=== PATIENT | male | born 1940 | race Caucasian/White ===

== ENCOUNTER 2016-05-29 16:44 | Inpatient (IN) ==
[2016-05-29] MEDS ORDERED: Ipratropium/Albuterol Neb 3 ML IH ONE (16:53)
[2016-05-29] MEDS ORDERED: methylPREDNISolone 125 MG/2 ML VIAL IVP ONE (16:53)
--- NOTE | 2016-05-29 16:58 | Emergency Department Note ---
Disposition Clinical Impression: Acute exacerbation of chronic obstructive airways disease, Lung mass Atrial flutter Qualifiers: Atrial flutter type: unspecified Qualified Code(s): I48.92 - Unspecified atrial flutter Lung cancer Qualifiers: Laterality: unspecified laterality Lung location: unspecified part of lung Qualified Code(s): C34.90 - Malignant neoplasm of unspecified part of unspecified bronchus or lung Disposition: Admitted As Inpatient Condition: Fair Referrals: NO,PCP [Non-Partnered Physician] - Forms: ED Satisfaction Letter Time of Disposition: 18:38 SOB HPI - General Chief Complaint: ED Shortness of Breath/Dyspnea Stated Complaint: SOB Time Seen by Provider: 05/29/16 16:53 Source: patient Mode of arrival: ambulatory Limitations: no limitations Nursing Notes Reviewed: Yes Vital Signs Reviewed: Yes - History of Present Illness 76-year-old comes in complaining of some shortness of breath. Patient states has a history of COPD and is also noted his heart rate to be elevated. Has no history of atrial fibrillation. Denies chest pain. 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 Echo cardiogram done in 2015 shows an EF of 45%. Pt Subjective Complaint: shortness of breath Onset (ago): hour(s) Severity: moderate Consistency/Duration: constant Improves with: nothing Worsens with: exertion Known history of: COPD Associated symptoms: Reports: wheezing Treatment prior to arrival: none Cough present: Yes Cough Description: Involuntary Cough Frequency: Intermittent - Related Data Home Medications Medication Instructions Recorded Confirmed Aspirin Enteric Coated [Aspirin EC] 81 mg PO DAILY 07/18/15 05/29/16 Furosemide [Lasix] 40 mg PO DAILY PRN 07/18/15 05/29/16 Hydrocodone/Ibuprofen 1 each PO Q8HR PRN 07/18/15 05/29/16 [Hydrocodone-Ibuprofen 7.5-200] Multivit-Min/FA/Lycopen/Lutein 1 each PO DAILY 07/18/15 05/29/16 [Centrum Silver Tablet] Albuterol Sulfate [Proair 2 puff IH Q6H PRN 05/22/16 05/29/16 Respiclick] Budesonide/Formoterol 160/4.5 2 puff IH BIDR 05/22/16 05/29/16 [Symbicort 160/4.5] Cyanocobalamin (B-12) [Vitamin B12] 1,000 mcg PO DAILY 05/22/16 05/29/16 Docusate [Colace] 100 mg PO BID 05/22/16 05/29/16 LORazepam [Ativan] 0.5 mg PO QID PRN 05/22/16 05/29/16 Loperamide [Imodium] 2 mg PO AD PRN 05/22/16 05/29/16 Magic Mouthwash [Magic Mouthwash 10 ml PO TID PRN 05/22/16 05/29/16 BLM] Ondansetron [Zofran] 8 mg PO Q8HR PRN 05/22/16 05/29/16 Prochlorperazine Maleate 10 mg PO Q6HR PRN 05/22/16 05/29/16 [Compazine] Sertraline [Zoloft] 2 mg PO HS 05/22/16 05/29/16 Zolpidem [Ambien] 5 mg PO HS PRN 05/22/16 05/29/16 Allergies Allergy/AdvReac Type Severity Reaction Status Date / Time No Known Allergies Allergy Verified 05/29/16 15:48 Constitutional: Denies: fever, chills, weakness, weight change Eyes: Denies: eye pain, eye discharge, vision change ENT ED: Denies: ear pain, throat pain, dental pain, hearing loss, epistaxis, congestion, dysphagia Cardiovascular: Denies: chest pain, palpitations, dyspnea on exertion, edema, syncope Respiratory: Denies: cough, dyspnea, wheezes, hemoptysis, stridor Gastrointestinal: Denies: abdominal pain, nausea, vomiting, diarrhea, constipation, hematemesis, melena, hematochezia Genitourinary: Denies: urgency, dysuria, frequency, hematuria Musculoskeletal: Denies: back pain, neck pain, arthralgia, myalgia Integumentary: Denies: rash, abrasion, lesions Neurological: Denies: headache, weakness, numbness, paresthesias, confusion, abnormal gait, vertigo Psychiatric: Denies: anxiety, depression, suicidal thoughts, homicidal thoughts , auditory hallucinations, visual hallucinations Endocrine: Denies: fatigue Hematological/Lymphatic: Denies: easy bleeding, easy bruising Allergic/Immunologic: Denies: facial swelling, urticaria Past Medical History - Past Medical History Medical history: Reports: cancer, COPD, DVT, HIV/AIDS, other Surgical history: Reports: other Psychiatric history: Reports: no psych history - Social History Smoking Status: Former smoker Alcohol use: Reports: none Drug use: Reports: none Physical Exam - General Limitations: no limitations General appearance: alert, in no apparent distress - Head Head exam: atraumatic, normocephalic, normal inspection - Eye Eye exam: Present: normal appearance, PERRL, EOMI - ENT ENT exam: normal exam, normal oropharynx, mucous membranes moist - Neck Neck exam: Present: normal inspection, full ROM, trachea midline - Chest Chest inspection: Present: normal inspection, symmetric chest wall rise - Respiratory Respiratory exam: Present: normal lung sounds bilaterally - Cardiovascular Cardiovascular exam: Present: tachycardia, irregular rhythm, normal heart sounds - Abdominal Exam Abdominal exam: Present: soft, Non-Tender. Absent: tenderness, distention, guarding, rebound, rigidity - Extremities Exam Extremities exam: Present: normal inspection, full ROM. Absent: tenderness, pedal edema - Expanded Lower Extremity Exam Neurovascular/Tendon exam: Absent: motor deficit, sensory deficit, tendon deficit Gait: observed and normal - Back Exam Back exam: Present: normal inspection, full ROM. Absent: tenderness - Neurological Exam Neurological exam: Present: alert, oriented X3 - Psychiatric Psychiatric exam: Present: normal affect, normal mood - Skin Skin exam: Present: warm, dry, intact, normal color Course Course Narrative: 76-year-old stage IV lung cancer comes in with shortness of breath. EKG shows an atrial flutter with rapid ventricular response patient was started on Cardizem with marked improvement of symptomatology however his heart rate remained at 1:30. The patient will be admitted for further evaluation and treatment. - Reevaluation(s) Reevaluation #1: States feeling much better however his heart rate still at about 130 while increase his Cardizem to 7.5/h. Time: 18:34 - Consultations Consultation #1: Discussed with Dr. Saba, it. Time: 20:33 Consultation #2: I discussed the case with Dr. Lauro Dowell he would like to add amiodarone standard drip. Time: 20:37 Consultation #3: Discussed with pharmacy. Time: 20:41 Vital Signs Temperature 98.2 F 05/29/16 17:02 Pulse Rate 131 05/29/16 17:02 Respiratory Rate 24 05/29/16 17:02 Blood Pressure 108/78 05/29/16 17:02 O2 Sat by Pulse Oximetry 94 05/29/16 17:02 Temperature 98.2 F 05/29/16 17:02 Pulse Rate 128 05/29/16 20:22 Respiratory Rate 14 05/29/16 20:22 Blood Pressure 117/70 05/29/16 20:22 O2 Sat by Pulse Oximetry 96 05/29/16 20:22 Oxygen Delivery Oxygen Delivery Nasal Cannula Shortness of Breath/Dyspnea - Lab Data Result diagrams: 05/29/16 17:00 05/29/16 17:00 Lab Results 05/29/16 05/29/16 05/29/16 Range/Units 17:00 17:00 17:00 WBC 12.2 H (4.3-11.1) K/mcL RBC 4.16 L (4.19-5.50) M/mcL Hgb 10.8 L (12.9-16.9) g/dL Hct 35.9 L (37.5-50.1) % MCV 86.3 (83.0-100.0) fL MCH 26.0 L (28.0-33.3) pg MCHC 30.1 L (31.6-35.5) g/dL RDW 18.4 H (11.5-14.5) % Plt Count 266 (140-400) K/mcL MPV 9.4 (9.4-12.4) fL Immature Gran % 0.5 (0-4) % Seg Neutrophils % 63.1 % Lymphocytes % 28.0 % Monocytes % 6.7 % Eosinophils % 1.4 % Basophils % 0.3 % Neutrophils # 7.7 (1.6-8.9) K/mcL Lymphocytes # 3.4 (0.6-4.6) K/mcL Monocytes # 0.8 (0.0-1.3) K/mcL Eosinophils # 0.2 (0.0-0.6) K/mcL Basophils # 0.0 (0.0-0.2) K/mcL PT 11.8 (9.4-12.1) Seconds INR 1.1 APTT 30.7 (26.0-36.0) Seconds Sodium 140 (136-145) mEq/L Potassium 4.1 (3.5-4.5) mEq/L Chloride 105 (98-109) mEq/L Carbon Dioxide 30 H (19-29) mEq/L BUN 18 (8-26) mg/dL Creatinine 0.72 (0.72-1.25) mg/dL Est GFR ( Amer) > 60 (> 60) Est GFR (Non-Af Amer) > 60 (> 60) BUN/Creatinine Ratio 25 (6-26) Glucose 144 H (70-99) mg/dL Calculated Osmolality 294 (280-300) Lactic Acid (0.5-2.2) mmol/L Calcium 9.1 (8.6-10.8) mg/dL Troponin I (0-0.03) ng/mL B-Natriuretic Peptide (0-100) pg/mL 05/29/16 05/29/16 05/29/16 Range/Units 17:00 17:00 17:36 WBC (4.3-11.1) K/mcL RBC (4.19-5.50) M/mcL Hgb (12.9-16.9) g/dL Hct (37.5-50.1) % MCV (83.0-100.0) fL MCH (28.0-33.3) pg MCHC (31.6-35.5) g/dL RDW (11.5-14.5) % Plt Count (140-400) K/mcL MPV (9.4-12.4) fL Immature Gran % (0-4) % Seg Neutrophils % % Lymphocytes % % Monocytes % % Eosinophils % % Basophils % % Neutrophils # (1.6-8.9) K/mcL Lymphocytes # (0.6-4.6) K/mcL Monocytes # (0.0-1.3) K/mcL Eosinophils # (0.0-0.6) K/mcL Basophils # (0.0-0.2) K/mcL PT (9.4-12.1) Seconds INR APTT (26.0-36.0) Seconds Sodium (136-145) mEq/L Potassium (3.5-4.5) mEq/L Chloride (98-109) mEq/L Carbon Dioxide (19-29) mEq/L BUN (8-26) mg/dL Creatinine (0.72-1.25) mg/dL Est GFR ( Amer) (> 60) Est GFR (Non-Af Amer) (> 60) BUN/Creatinine Ratio (6-26) Glucose (70-99) mg/dL Calculated Osmolality (280-300) Lactic Acid 0.8 (0.5-2.2) mmol/L Calcium (8.6-10.8) mg/dL Troponin I 0.03 (0-0.03) ng/mL B-Natriuretic Peptide 641 H (0-100) pg/mL - Radiology Data Radiology results reviewed: Yes I reviewed the patient's radiology results. Chest X-Ray 05/29/16 16:55 IMPRESSION: Bilateral lung masses better characterized on CT. Trace to small bilateral effusions. D/ / 05/29/2016 18:36:59 Lorena Edmonds MD / earnold Interpreting Provider: Lorena Edmonds MD - EKG Data EKG attestation: Yes I reviewed and interpreted this EKG. Rate: Reports: tachycardia Rhythm: Reports: A. flutter Interpretation: Reports: other (Acute atrial flutter) Critical Care Time Critical Care Time: Yes Total Critical Care Time: 75 Attestation: The high probability of a clinically significant, sudden or life threatening deterioration of the [cardiovascular] system(s) required my full and direct attention, intervention and personal management. The aggregate critical care time was [75] minutes. This time is in addition to time spent performing reported procedures but includes the following: [x] Data Review and interpretation [x] Patient assessment and monitoring of vital signs [x] Documentation [x] Medication orders and management
[2016-05-29] MEDS ORDERED: 0.9 % Sodium Chloride 500 ML IVC ONE (17:06)
[2016-05-29 17:11] LABS: Basophils % 0.3 %; Eosinophils # 0.2 K/mcL (0.0-0.6); Eosinophils % 1.4 %; Hematocrit 35.9 % (37.5-50.1); Hemoglobin 10.8 g/dL (12.9-16.9); Immature Granulocytes % 0.5 % (0-4); Lymphocytes # 3.4 K/mcL (0.6-4.6); Mean Corpuscular HGB Conc 30.1 g/dL (31.6-35.5); Mean Corpuscular Volume 86.3 fL (83.0-100.0); Mean Platelet Volume 9.4 fL (9.4-12.4); Monocytes # 0.8 K/mcL (0.0-1.3); Monocytes % 6.7 %; Neutrophils # 7.7 K/mcL (1.6-8.9); Platelet Count 266 K/mcL (140-400); Red Blood Count 4.16 M/mcL (4.19-5.50); Red Cell Distribution Width 18.4 % (11.5-14.5); Segmented Neutrophils % 63.1 %
[2016-05-29 17:13] LABS: INR 1.1; Prothrombin Time 11.8 Seconds (9.4-12.1)
[2016-05-29 17:16] LABS: Activated Partial Thrombo Time 30.7 Seconds (26.0-36.0)
[2016-05-29 17:20] LABS: BUN/Creatinine Ratio 25 (6-26); Blood Urea Nitrogen 18 mg/dL (8-26); Calcium 9.1 mg/dL (8.6-10.8); Carbon Dioxide 30 mEq/L (19-29); Chloride 105 mEq/L (98-109); Glucose 144 mg/dL (70-99); Osmolality,Calculated 294 (280-300); Potassium 4.1 mEq/L (3.5-4.5); Sodium 140 mEq/L (136-145); eGFR For African Americans > 60 (> 60); eGFR For Non-African Americans > 60 (> 60)
[2016-05-29] MEDS ORDERED: *HR* HYDROcodone/Acet 5/325 mg TABLET PO ONE (20:24)
[2016-05-29] MEDS ORDERED: Amiodarone Premix 360 MG/200 ML BAG IVC ONE (20:37)
[2016-05-29] MEDS ORDERED: Albuterol 2.5 MG/3 ML NEBULIZER IH PRN (22:46)
[2016-05-29] MEDS ORDERED: Ipratropium/Albuterol Neb 3 ML IH SCH (23:00)
--- NOTE | 2016-05-29 23:33 | Internal Med History&Physical ---
<Mary Delgado - Last Filed: 05/30/16 00:17> Date of Encounter: 05/30/16 Time of Encounter: 23:00 Assessment and Plan (1) Atrial flutter Current visit: Yes Status: Acute Patient has been expressing increasing shortness of breath with weight gain for approximately one week. She presented today to the ER was noted that his EKG revealed atrial flutter with rapid ventricular response rate 130s. Patient seen on cardiac exam case discussed with cardiology who suggested adding amiodarone will continue 2 cardiology consult 3 continue his cardiac monitoring 4 heparin drip 5. Obtain cardiac echo 6 trend troponin Qualifiers: Atrial flutter type: unspecified Qualified Code(s): I48.92 - Unspecified atrial flutter (2) Dyspnea Current visit: No Status: Acute 1. She has history of chronic shortness of breath over the past week has been dispensing increasing shortness of breath on exertion. This could be multifactorial patient is a history of COPD as well as lung cancer. He has a history of liver metastases and has been experiencing ascites which could also compromises respiratory status. He presents today in atrial flutter rate of 130 and sure how long he has been in this rhythm, which also could be contributing to dyspnea. He will continue with oxygen titrating to maintain SPO2 greater than 92% 2 we will give Xopenex as needed for wheezing 3 continue with amiodarone as well as Cardizem drip atrial flutter 4. consider Paracentesis to improve resp status Qualifiers: Dyspnea type: dyspnea on exertion Qualified Code(s): R06.09 - Other forms of dyspnea (3) Ascites Current visit: Yes Status: Acute 1 patient has history of lung cancer with metastasis to liver. Has been experiencing increasing ascites has a trace pleural effusion. Has been taking Lasix with some relief may need paracentesis Qualifiers: Ascites type: malignant Qualified Code(s): R18.0 - Malignant ascites (4) Lung cancer Current visit: No Status: Chronic 1 patient is following oncology and is receiving nivolumbab every 2 weeks continue with current treatment consult as needed Qualifiers: Laterality: right Lung location: upper lobe of lung Qualified Code(s): C34.11 - Malignant neoplasm of upper lobe, right bronchus or lung (5) Liver metastases Current visit: Yes Status: Chronic 1 treatment with oncology outlined as above (6) DVT prophylaxis Current visit: Yes Status: Acute Heparin drip Internal Medicine - H&P: HPI Chief complaint: SOB Admitted From: Emergency Dept Plans for Post Hospital Care: Home History of present illness: Mr. 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 Patient has chronic shortness of breath related to COPD and lung cancer however in the past couple days he has had increased rash of breath on exertion. He states that last his oncologist did place him on steroids due to shortness of breath which she states she completed on Thursday. He is also been experiencing edema to lower extremities as well as abdomen he has had a 7 pound weight gain. He does take Lasix as needed as dictated 2 days ago and did note a decrease in swelling He denies any chest pain cough fever chills nausea vomiting or diarrhea. 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 Upon presentation to ER patient was experiencing respiratory distress with wheezing EKG did reveal atrial flutter with rapid ventricular response rate of 1:30 SPO2 was 94% on room. He was given breathing treatments as well as steroids is placed on Cardizem drip. His present heart rate continues to be 120s to 130s however he feels his symptoms has improved. Here physician to speak to cardiology who recommended initiating amiodarone. Patient was admitted for further workup and evaluation. Presently patient does not appear to be in respiratory distress he denies any chest pain he is atrial flutter 120s in the monitor. He has scattered rhonchi throughout lung flores heart sounds are irregular S1 and S2 with no rubs gallops clicks or murmurs noted. He has +2 pitting edema to lower strength bilaterally. His abdomen is distended and firm nontender. Reviewed his case with Dr. Saba who agrees with plan Past Med Surg Social Fam HX - Past Medical History Medical history: cancer, COPD, DVT, HIV/AIDS, other Psychiatric history: no psych history - Past Surgical History Surgical History: other - Social History Smoking Status: Former smoker Smokeless Tobacco Status: No Alcohol use: none Drug use: none - Family History Mother Living Status: Hx Family Cancer: Yes (colon) Father Living Status: Hx Family Cardiac Disorders: Yes Internal Medicine - H&P: Meds Aspirin Enteric Coated [Aspirin EC] 81 mg PO DAILY 07/18/15 [History] Furosemide [Lasix] 40 mg PO DAILY PRN 07/18/15 [History] Multivit-Min/FA/Lycopen/Lutein [Centrum Silver Tablet] 1 each PO DAILY 07/18/15 [History] Albuterol Sulfate [Proair Respiclick] 2 puff IH Q6H PRN 05/22/16 [History] Budesonide/Formoterol 160/4.5 [Symbicort 160/4.5] 2 puff IH BIDR 05/22/16 [ History] Cyanocobalamin (B-12) [Vitamin B12] 1,000 mcg PO DAILY 05/22/16 [History] Docusate [Colace] 100 mg PO BID 05/22/16 [History] LORazepam [Ativan] 0.5 mg PO QID PRN 05/22/16 [History] Loperamide [Imodium] 2 mg PO AD PRN 05/22/16 [History] Magic Mouthwash [Magic Mouthwash BLM] 10 ml PO TID PRN 05/22/16 [History] Ondansetron [Zofran] 8 mg PO Q8HR PRN 05/22/16 [History] Prochlorperazine Maleate [Compazine] 10 mg PO Q6HR PRN 05/22/16 [History] Sertraline [Zoloft] 100 mg PO HS 05/22/16 [History] Zolpidem [Ambien] 5 mg PO HS PRN 05/22/16 [History] HYDROcodone/Acet 7.5/325 mg [[place] 7.5-325 mg] 1 tab PO Q8H PRN 05/29/16 [ History] Isosorbide MONOnitrate (24 HR) [Imdur] 60 mg PO DAILY 05/29/16 [History] Omeprazole [PriLOSEC] 20 mg PO DAILY 05/29/16 [History] Allergies No Known Allergies Allergy (Verified 05/29/16 15:48) All Systems PM: A 10-system review of systems was performed and is negative for pertinent findings except as documented above in the HPI. - Constitutional Constitutional: weakness, weight gain - Cardiovascular Cardiovascular ROS IM: dyspnea, dyspnea on exertion, edema, no chest pain, no diaphoresis, no lightheadedness, no palpitations, no syncope - Respiratory Respiratory: dyspnea on exertion, wheezing - Gastrointestinal Gastrointestinal: bloating - Neurological Neurological ROS: no confusion, no convulsions, no focal weakness, no numbness, no tingling, no tremor(s) - Constitutional Vitals: Temp Pulse Resp BP Pulse Ox 98.3 F 127 18 104/68 99 05/29/16 22:24 05/29/16 22:24 05/29/16 23:10 05/29/16 22:24 05/29/16 23:10 General appearance: Present: A&O X 3, answers questions appropriately - Head Head exam: Present: atraumatic, normocephalic - Eye Eye exam: Present: PERRL, conjuntiva pink, sclera anicteric Pupils: Present: PERRL - Neck Neck exam general surgery: Present: supple, trachea midline. Absent: lymphadenopathy - Respiratory Respiratory exam: Present: rhonchi. Absent: accessory muscle use, rales, wheezes - Cardiovascular Cardiovascular exam: Present: irregular rhythm, +S1, +S2, tachycardia. Absent: diastolic murmur, gallop, rubs, systolic murmur - GI/Abdominal GI/Abdominal exam: Present: distended, firm, normal bowel sounds, no peritoneal signs. Absent: tenderness - Extremities Exam Extremities exam: Present: pedal edema, warm, radial pulses palpable and symetrical. Absent: calf tenderness, cyanotic - Neurological Exam Neurological exam: Present: CN II-XII intact, oriented X3, no focal deficits. Absent: pronater drift, facial droop, speech deficit - Skin Skin exam: Present: dry, intact Internal Med - H&P Results - Labs CBC & Chem 7: 05/29/16 17:00 05/29/16 17:00 - EKG Data EKG comments: 05/29/16 23:46 Atrial flutter with rapid ventricular response left axis deviation reviewed EKG with Dr. Saba - Diagnostic Studies Other Images Additional comments: Chest X-Ray 05/29/16 16:55 IMPRESSION: Bilateral lung masses better characterized on CT. Trace to small bilateral effusions. D/ / 05/29/2016 18:36:59 Lorena Edmonds MD / earnold Interpreting Provider: Lorena Edmonds MD <Osei Saba - Last Filed: 05/30/16 06:14> Date of Encounter: 05/29/16 Internal Medicine - H&P: HPI History of present illness: Mr. Flaherty is a 76 year old male All Systems PM: A 10-system review of systems was performed and is negative for pertinent findings except as documented above in the HPI. - Constitutional Vitals: Temp Pulse Resp BP Pulse Ox 98.0 F 113 18 97/67 100 05/30/16 04:44 05/30/16 06:00 05/30/16 04:44 05/30/16 06:00 05/30/16 04:44 Internal Med - H&P Results - Labs CBC & Chem 7: 05/29/16 17:00 05/29/16 17:00 Labs: Cardiac Enzymes 05/29/16 Range/Units 23:55 Troponin I 0.02 (0-0.03) ng/mL - Attending Attestation I performed history and physical examination of the patient and discussed management with ELEMENTARY SCHOOL TEACHER/ANP. I reviewed the ELEMENTARY SCHOOL TEACHER/ANPs note and agree with the documented findings and plan of care. 76 Y/M with h/o metastatic lung cancer with metastases to liver, COPD, hypertension and DVT in past. He reports that he had irregular heart rhythm for a long time (he does not know further details). Patient has chronic shortness of breath related to COPD and lung cancer however in the past couple days he has had increased rash of breath on exertion. He reports recent h/o abdominal distention and bilateral lower extremity edema. In the emergency department he was noted to have atrial flutter with rapid ventricular response. He was started on the diltiazem infusion and admitted to the hospitalist service. O/E: Tachycardic, with HR of about 120. No significant murmurs. Few bibasal crackles present. Abdominal distension; b/l lower extremity pitting edema present. EKG personally reviewed by me shows some atrial flutter with rapid ventricular fast leatha, heart rate of 131, RBBB. Chest x-ray reported bilateral lung masses better characterized on CT. Trace to small bilateral effusions. A/P: Atrial flutter with RVR: Patient was started on diltiazem infusion in the emergency department, per cardiologists recommendation he was started on amiodarone infusion as well. Patient continues to be tachycardic in the 120s. Given a dose of IV metoprolol 5 mg. will request cardiology consultation and echocardiogram. His recent TSH and free T4 were normal on 05/22/16 and hence not rechecked
[2016-05-29] MEDS ORDERED: *HR* Heparin 5,000 UNIT/ML VIAL IVP PRN ×2 (23:53)
[2016-05-29] MEDS ORDERED: *HR* Heparin 5,000 UNIT/ML VIAL IVP ONE (23:53)
[2016-05-30] MEDS: Heparin 25,000 UNIT/500 ML D5W 25,000 UNIT/500 ML MLS IVC SCH ×2 (01:04→23:30)
[2016-05-30] MEDS ORDERED: *HR* Metoprolol 5 MG/5 ML VIAL IVP ONE (01:10)
[2016-05-30] MEDS: Amiodarone Premix 360 MG/200 ML BAG IVC SCH ×2 (02:46→13:30)
[2016-05-30 07:04] LABS: BUN/Creatinine Ratio 26 (6-26); Blood Urea Nitrogen 23 mg/dL (8-26); Calcium 8.9 mg/dL (8.6-10.8); Carbon Dioxide 28 mEq/L (19-29); Chloride 105 mEq/L (98-109); Glucose 218 mg/dL (70-99); Osmolality,Calculated 300 (280-300); Potassium 4.9 mEq/L (3.5-4.5); Sodium 140 mEq/L (136-145); eGFR For African Americans > 60 (> 60); eGFR For Non-African Americans > 60 (> 60)
[2016-05-30 07:45] LABS: Basophils % 0.2 %; Hematocrit 36.3 % (37.5-50.1); Hemoglobin 10.8 g/dL (12.9-16.9); Immature Granulocytes % 0.6 % (0-4); Lymphocytes # 3.7 K/mcL (0.6-4.6); Mean Corpuscular HGB Conc 29.8 g/dL (31.6-35.5); Mean Corpuscular Hemoglobin 26.3 pg (28.0-33.3); Mean Corpuscular Volume 88.3 fL (83.0-100.0); Mean Platelet Volume 10.4 fL (9.4-12.4); Monocytes # 0.4 K/mcL (0.0-1.3); Monocytes % 3.5 %; Neutrophils # 6.1 K/mcL (1.6-8.9); Platelet Count 263 K/mcL (140-400); Red Blood Count 4.11 M/mcL (4.19-5.50); Red Cell Distribution Width 18.6 % (11.5-14.5); Segmented Neutrophils % 59.7 %
[2016-05-30] MEDS: Cyanocobalamin (B-12) 1,000 MCG TABLET PO SCH (08:15)
[2016-05-30] MEDS: Isosorbide MONOnitrate (24 HR) 60 MG TAB.ER.24H PO SCH (08:15)
[2016-05-30] MEDS: Aspirin Enteric Coated 81 MG Tablet PO SCH (08:15)
[2016-05-30] MEDS: Multivit/Ca/Min/Fe/FA 1 TAB TABLET PO SCH (08:15)
[2016-05-30] MEDS ORDERED: Acetaminophen 325 MG TABLET PO PRN (09:07)
--- NOTE | 2016-05-30 10:26 | Cardiology Consult Note ---
Date of Encounter: 05/30/16 Time of Encounter: 10:24 Assessment and Plan (1) Atrial flutter Current Visit: Yes Status: Acute 1 week of dyspnea, mostly on exertion. Found to be in A-flutter with RVR Was initially started on cardizem but was later switched to amiodarone. BP has been borderline with SBP averaging approximately 100 HR has been averaging 125 with current rate of 114. Troponin trended 0.03, 0.02, 0.03 CXR shows known lung masses and trace pleural effusion Echo is pending Will make NPO and discuss with the patient possible DONITA with cardioversion Qualifiers: Atrial flutter type: unspecified Qualified Code(s): I48.92 - Unspecified atrial flutter (2) Dyspnea Current Visit: Yes Status: Acute Dyspnea likely secondary to COPD vs pulmonary congestion from atrial flutter vs pleural effusions Echo is pending. Qualifiers: Dyspnea type: dyspnea on exertion Qualified Code(s): R06.09 - Other forms of dyspnea (3) Lung cancer Current Visit: Yes Status: Acute Managed by primary team. Qualifiers: Laterality: unspecified laterality Lung location: unspecified part of lung Qualified Code(s): C34.90 - Malignant neoplasm of unspecified part of unspecified bronchus or lung Discussion w patient/family: The assessment and plan as outlined above was discussed with the patient and/or family members who expressed understanding and agreement. All questions were answered. Thank you for involving us in the care of your patient. Please call with any questions. History of Present Illness Consult date: 05/30/16 Consult reason: Atrial flutter RVR Chief complaint: Dyspnea and LE edema History of present illness: Mr. Flaherty is a 76 year old male with a significant history of COPD, Lung cancer w / liver metastasis, HTN. Presented to the ER due to 1 week of dyspnea and LE edema. Was found to be in atrial flutter with RVR with a rate of 130. He reports he had a heart cath 20 years ago but no stents placed. No CABG. Denies syncope or pre syncope. Does not take anti hypertensive at home. Denies palpitations or chest pain. Past Med Surg Social Fam HX - Past Medical History Medical history: cancer, COPD, DVT, HIV/AIDS, other Psychiatric history: no psych history - Past Surgical History Surgical History: other - Social History Smoking Status: Former smoker Smokeless Tobacco Status: No Alcohol use: none Drug use: none - Family History Mother Living Status: Hx Family Cancer: Yes (colon) Father Living Status: Hx Family Cardiac Disorders: Yes Medications and Allergies Aspirin Enteric Coated [Aspirin EC] 81 mg PO DAILY 07/18/15 [History] Furosemide [Lasix] 40 mg PO DAILY PRN 07/18/15 [History] Multivit-Min/FA/Lycopen/Lutein [Centrum Silver Tablet] 1 each PO DAILY 07/18/15 [History] Albuterol Sulfate [Proair Respiclick] 2 puff IH Q6H PRN 05/22/16 [History] Budesonide/Formoterol 160/4.5 [Symbicort 160/4.5] 2 puff IH BIDR 05/22/16 [ History] Cyanocobalamin (B-12) [Vitamin B12] 1,000 mcg PO DAILY 05/22/16 [History] Docusate [Colace] 100 mg PO BID 05/22/16 [History] LORazepam [Ativan] 0.5 mg PO QID PRN 05/22/16 [History] Loperamide [Imodium] 2 mg PO AD PRN 05/22/16 [History] Magic Mouthwash [Magic Mouthwash BLM] 10 ml PO TID PRN 05/22/16 [History] Ondansetron [Zofran] 8 mg PO Q8HR PRN 05/22/16 [History] Prochlorperazine Maleate [Compazine] 10 mg PO Q6HR PRN 05/22/16 [History] Sertraline [Zoloft] 100 mg PO HS 05/22/16 [History] Zolpidem [Ambien] 5 mg PO HS PRN 05/22/16 [History] HYDROcodone/Acet 7.5/325 mg [[place] 7.5-325 mg] 1 tab PO Q8H PRN 05/29/16 [ History] Isosorbide MONOnitrate (24 HR) [Imdur] 60 mg PO DAILY 05/29/16 [History] Omeprazole [PriLOSEC] 20 mg PO DAILY 05/29/16 [History] Allergies No Known Allergies Allergy (Verified 05/29/16 15:48) All Systems Review: A 10-system review of systems was performed and is negative for pertinent findings except as documented above in the HPI. - Constitutional Constitutional: fatigue, no headache(s) - Cardiovascular Cardiovascular: dyspnea at rest, dyspnea on exertion, leg edema, no chest pain at rest, no chest pain with exertion, no claudication, no lightheadedness - Respiratory Respiratory: cough - Gastrointestinal Gastrointestinal: no abdominal pain - Musculoskeletal Musculoskeletal: no back pain - Integumentary Integumentary: no rash Physical Examination Vital Signs, Last 4 Hours Temp Pulse Resp BP Pulse Ox 05/30/16 08:06 97.6 F 114 18 90/60 96 05/30/16 07:30 114 General: Conversant HEENT: Atraumatic Neck: No JVD Cardiac: Other (regular rhythm, tachycardia) Lungs: Other (Poor air movement) Neuro: Alert and responsive, No focal deficits noted Abdomen: Soft Skin: No rashes noted on visualized skin Extremities: No Cyanosis, Normal Pulses, Other (2+ tense LE edema) Results 05/30/16 06:43 05/30/16 06:43 Lab Results 05/29/16 05/30/16 05/30/16 23:55 06:43 06:43 WBC 10.2 Hgb 10.8 L Hct 36.3 L Plt Count 263 APTT Sodium 140 Potassium 4.9 H Chloride 105 Carbon Dioxide 28 BUN 23 Creatinine 0.88 Glucose 218 H Calcium 8.9 Magnesium 2.0 Troponin I 0.02 05/30/16 05/30/16 06:43 06:43 WBC Hgb Hct Plt Count APTT 50.1 H D Sodium Potassium Chloride Carbon Dioxide BUN Creatinine Glucose Calcium Magnesium Troponin I 0.03 Consult Discharge Plan - Plan Referrals: Korey Grullon MD [Primary Care Provider] - 06/05/16 2:30 pm
[2016-05-30] MEDS: Budesonide/Formoterol 160/4.5 MDI IH SCH ×2 (10:54→21:43)
[2016-05-30] MEDS: Levalbuterol Neb 0.63 MG/3 ML IH SCH ×2 (10:54→21:43)
--- NOTE | 2016-05-30 11:17 | Internal Med Progress Note ---
Date of Encounter: 05/30/16 Time of Encounter: 11:15 - Assessment and plan (1) Atrial flutter Current Visit: Yes Status: Acute Assessment and plan: New onset atrial flutter with rapid ventricular response. Cardiology has been consulted and patient started on IV Cardizem and IV amiodarone drips. Continue anticoagulation with IV heparin drip. Continue telemetry monitoring. Plan for possible cardioversion today as patient's heart rate cannot be appropriately controlled on 2 drips. Follow up echocardiogram. High risk for complications. Qualifiers: Atrial flutter type: unspecified Qualified Code(s): I48.92 - Unspecified atrial flutter (2) Ascites Current Visit: Yes Status: Chronic Assessment and plan: Patient has known history of metastatic lung cancer with liver metastases and possibly malignant ascites. May require paracentesis if he continues to have dyspnea, after heart rate control. Will restart Lasix. Qualifiers: Ascites type: malignant Qualified Code(s): R18.0 - Malignant ascites (3) COPD (chronic obstructive pulmonary disease) Current Visit: Yes Status: Chronic Assessment and plan: Not noted to be in acute exacerbation. Continue scheduled bronchodilators, inhaled corticosteroids and supplemental oxygen as needed. Patient is noted to be on nocturnal home oxygen at 2 L/m via nasal cannula. Qualifiers: COPD type: unspecified COPD Qualified Code(s): J44.9 - Chronic obstructive pulmonary disease, unspecified (4) Liver metastases Current Visit: Yes Status: Chronic (5) Lung cancer Current Visit: Yes Status: Chronic Assessment and plan: Patient follows with oncology as outpatient. Is currently on chemotherapy and recently received palliative radiation to left shoulder. 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 - Subjective Interval history: Feels slightly short of breath; reports abdominal distension and leg swelling; ran out of Lasix and nebulizer meds at home; lives alone; - Constitutional Vitals: Temp Pulse Resp BP Pulse Ox 97.6 F 114 18 90/60 96 05/30/16 08:06 05/30/16 08:06 05/30/16 08:06 05/30/16 08:06 05/30/16 08:06 General appearance: Present: mild distress, A&O X 3, answers questions appropriately - Respiratory Respiratory exam: Present: CTAB, rales (faint right basal crepts). Absent: accessory muscle use, rhonchi, wheezes - Cardiovascular Cardiovascular exam: Present: irregular rhythm, +S1, +S2, tachycardia. Absent: diastolic murmur, gallop, rubs, systolic murmur - GI/Abdominal GI/Abdominal exam: Present: distended (ascites+, fluid thrill+), normal bowel sounds, soft, no peritoneal signs. Absent: tenderness - Extremities Exam Extremities exam: Present: full ROM, pedal edema (3+ pitting pedal edema B/L legs upto thighs), warm, radial pulses palpable and symetrical. Absent: calf tenderness, cyanotic Internal Medicine: Result - Labs CBC & Chem 7: 05/30/16 06:43 05/30/16 06:43 Labs: Short CBC 05/30/16 Range/Units 06:43 WBC 10.2 (4.3-11.1) K/mcL Hgb 10.8 L (12.9-16.9) g/dL Hct 36.3 L (37.5-50.1) % Plt Count 263 (140-400) K/mcL Neutrophils # 6.1 (1.6-8.9) K/mcL BMP 05/30/16 06:43 Sodium 140 Potassium 4.9 H Chloride 105 Carbon Dioxide 28 BUN 23 Creatinine 0.88 Glucose 218 H Calcium 8.9 Cardiac Enzymes 05/29/16 05/30/16 Range/Units 23:55 06:43 Troponin I 0.02 0.03 (0-0.03) ng/mL - ABG Interpretation ABG results: PT/INR, D-dimer PT 11.8 Seconds (9.4-12.1) 05/29/16 17:00 Consult Discharge Plan - Plan Referrals: Korey Grullon MD [Primary Care Provider] - 06/05/16 2:30 pm
[2016-05-30] MEDS: Furosemide 40 MG TABLET PO SCH (11:44)
--- NOTE | 2016-05-30 13:23 | ECHO - Doppler Report ---
Echocardiogram Name: Wilmer Flaherty Date of Study: 05/30/2016 Date: 1940 Ht: 71.0 in Medical Record#: [id number] Age: 76 Wt: 169.0 lb Gender: Male BSA: 1.96 Order #: [id number] Location: [facility] Room #: 2N07 Reading Physician: Dominick Fernandez DO, MYNOR PALM Fitting Supervisor: Brennon Franco RN Ordering Physician: Mary Delgado CNP Primary Physician: Korey Grullon MD Indications: Arrhythmia Impressions: LVEF 30-35%. Mildly dilated left ventricle. Severe global left ventricular systolic dysfunction. Indeterminate diastolic function. Atypical septal motion possibly due to a bundle branch block. Mildly dilated right ventricle. Mild right ventricular hypokinesis. Severely dilated left atrium. Severely dilated right atrium. Mild mitral regurgitation. Mild pulmonary hypertension. Compared to prior reports, LVEF is reduced. Consider repeat study when HR better controlled. Left Ventricular Wall Motion: Rest Echo Findings The apex, apical inferior, mid inferior, basal inferior, apical anterior, mid anterior, basal anterior, apical septal, mid inferior septal, basal inferior septal, apical lateral, mid anterior lateral, basal anterior lateral, mid anterior septal, mid inferior lateral, basal anterior septal and basal inferior lateral levy were hypokinetic. Findings: Study Quality * Technically adequate exam. ECG Findings * Difficult to determinr rhythm due to tachycardia. Left Ventricle * LVEF 30-35%. * Mildly dilated left ventricle. * Severe global left ventricular systolic dysfunction. * Indeterminate diastolic function. * Atypical septal motion possibly due to a bundle branch block. Right Ventricle * Mildly dilated right ventricle. * Mild right ventricular hypokinesis. Left Atrium * Severely dilated left atrium. Right Atrium * Severely dilated right atrium. Interatrial Septum * Interatrial septum not well evaluated. Aortic Valve * Trileaflet aortic valve. * Mildly sclerotic aortic valve leaflets. * No aortic regurgitation. * No aortic stenosis. Mitral Valve * Mildly thickened mitral valve leaflets. * Mild mitral regurgitation. * No mitral stenosis. Tricuspid Valve * Normal tricuspid valve structure and function. * Trace tricuspid regurgitation. * Mild pulmonary hypertension. * Estimated RVSP is 35 mmHg. * Estimated RA pressure is 10 mmHg. Pulmonic Valve * Normal pulmonic valve structure and function. * No pulmonic regurgitation. Aorta * Normally sized aortic root. Pericardium * There is a trivial pericardial effusion present. * There is no echocardiographic evidence of tamponade. IVC * The IVC is not dilated. * < 50% respiratory change. Pulmonary Artery * Normal visualized portions of the main pulmonary artery. History Hypertension Family History of CAD 01/09/2016 a Previous Echo was performed. Measurements: BP: 90/ 60 2D Normal Values RVIDd: 3.30 cm <2.7 cm IVSd: 1.10 cm 0.6 - 1.0 cm LVIDd: 5.80 cm 3.7 - 5.6 cm LVPWd: 1.10 cm 0.6 - 1.1 cm LVIDs: 4.60 cm 1.5 - 3.6 cm LA: 4.40 cm 2.0 - 4.0cm %FS: 20.70 cm >25 % LVOT Diam: 2.00 cm LA volume: 109 Mitral Valve Peak E:1.14 m/sec Peak E' Lat Joseph:6.73 cm/s Peak E' Med Joseph:4.97 cm/s E/E' Lat Ratio:16.9 E/E' Med Ratio:22.9 Tricuspid Valve TV Regurg Peak Grad: 25.00mmHg TV Regurg Peak Joseph: 2.50m/sec Updated by Dominick Fernandez DO, FACAshley, MYNOR, KYLEIGH on 05/30/2016 1:18:25 PM electronically signed on 05/30/2016 1:19:10 PM with status of Final Wall Motion Carr: 1=Normal, 2=Hypokinesis, 3=Akinesis, 4=Dyskinesis, 5=Aneurysmal, 6=Hyperkinetic, X=Not Visualized (Blank)=Missing
[2016-05-30] MEDS ORDERED: *HR* Midazolam HCl 5 MG/5 ML VIAL IVP ONE (13:49)
[2016-05-30] MEDS ORDERED: *HR* FentaNYL (PF) 100 MCG/2 ML VIAL ONE (13:50)
[2016-05-30] MEDS ORDERED: *HR* Midazolam HCl 2 MG/2 ML VIAL ONE (13:50)
[2016-05-30] MEDS ORDERED: *HR* Dextrose 50 % in Water (Syg) 50 ML SYRINGE IVP PRN (14:45)
[2016-05-30] MEDS ORDERED: D5% in Water 1,000 ML IVC PRN (14:45)
[2016-05-30] MEDS ORDERED: Dextrose Gel 15 GM PO PRN ×2 (14:45)
[2016-05-30] MEDS: Insulin LISPRO 300 UNITS/3 ML VIAL SQ SCH ×2 (16:36→20:39)
[2016-05-30] MEDS: *HR* Digoxin 0.5 MG/2 ML AMPUL IVP SCH ×2 (16:44→22:02)
--- NOTE | 2016-05-30 17:19 | Electrocardiograph Report ---
[place] [id number] Test Date: 2016-05-29 Pat Name: Wilmer Flaherty Department: 104 Room: 2N07 Gender: M [employer]illing [employer]: [facility] : 1940 Requested By: Elder Reyes Order Number: [id number] Reading MD: Daniela Dowell Measurements Intervals [place] Rate: 131 P: HI: 0 QRS: -58 QRSD: 118 T: 106 QT: 312 QTc: 389 Interpretive Statements ATRIAL FLUTTER WITH RAPID VENTRICULAR RESPONSE WITH ABERRANT CONDUCTION OR VENTRICULAR PREMATURE COMPLEXES MARKED LEFT AXIS DEVIATION INCOMPLETE RIGHT BUNDLE BRANCH BLOCK LEFT VENTRICULAR HYPERTROPHY AND ST-T CHANGE POSSIBLE ANTERIOR MYOCARDIAL INFARCTION, OF INDETERMINATE AGE Electronically Signed On 05-30-2016 17:18:00 EDT by Daniela Dowell
[2016-05-30] MEDS ORDERED: *HR* Digoxin 0.5 MG/2 ML AMPUL IVP SCH (18:00)
[2016-05-31] MEDS: Amiodarone Premix 360 MG/200 ML BAG IVC SCH ×3 (01:13→23:57)
[2016-05-31] MEDS: *HR* Digoxin 0.5 MG/2 ML AMPUL IVP SCH (03:53)
[2016-05-31 05:27] LABS: Basophils % 0.2 %; Eosinophils # 0.1 K/mcL (0.0-0.6); Eosinophils % 0.4 %; Hematocrit 34.9 % (37.5-50.1); Hemoglobin 10.6 g/dL (12.9-16.9); Hemoglobin A1C 5.6 %; Immature Granulocytes % 0.4 % (0-4); Lymphocytes # 3.2 K/mcL (0.6-4.6); Lymphocytes % 27.6 %; Mean Corpuscular HGB Conc 30.4 g/dL (31.6-35.5); Mean Corpuscular Hemoglobin 26.5 pg (28.0-33.3); Mean Corpuscular Volume 87.3 fL (83.0-100.0); Mean Platelet Volume 10.4 fL (9.4-12.4); Monocytes # 0.8 K/mcL (0.0-1.3); Neutrophils # 7.4 K/mcL (1.6-8.9); Platelet Count 242 K/mcL (140-400); Red Cell Distribution Width 18.6 % (11.5-14.5); Segmented Neutrophils % 64.4 %
[2016-05-31 05:32] LABS: BUN/Creatinine Ratio 31 (6-26); Blood Urea Nitrogen 26 mg/dL (8-26); Calcium 8.8 mg/dL (8.6-10.8); Carbon Dioxide 30 mEq/L (19-29); Chloride 101 mEq/L (98-109); Glucose 132 mg/dL (70-99); Magnesium 1.9 mg/dL (1.6-2.6); Osmolality,Calculated 295 (280-300); Potassium 4.4 mEq/L (3.5-4.5); Sodium 139 mEq/L (136-145); eGFR For African Americans > 60 (> 60); eGFR For Non-African Americans > 60 (> 60)
[2016-05-31] MEDS: Insulin LISPRO 300 UNITS/3 ML VIAL SQ SCH ×4 (07:42→21:04)
[2016-05-31] MEDS: Aspirin Enteric Coated 81 MG Tablet PO SCH (08:55)
[2016-05-31] MEDS: Cyanocobalamin (B-12) 1,000 MCG TABLET PO SCH (08:55)
[2016-05-31] MEDS: Furosemide 40 MG TABLET PO SCH (08:55)
[2016-05-31] MEDS: Isosorbide MONOnitrate (24 HR) 60 MG TAB.ER.24H PO SCH (08:55)
[2016-05-31] MEDS: Multivit/Ca/Min/Fe/FA 1 TAB TABLET PO SCH (08:55)
--- NOTE | 2016-05-31 09:26 | Cardiology Progress Note ---
Date of Encounter: 05/31/16 Time of Encounter: 09:24 Assessment and Plan (1) Dyspnea Current Visit: Yes Status: Acute Dyspnea likely secondary to COPD vs pulmonary congestion from atrial flutter vs pleural effusions Echo shows LV systolic dysfunction which is probably contributing to SOB. Continue medical therapy and rate control. Qualifiers: Dyspnea type: dyspnea on exertion Qualified Code(s): R06.09 - Other forms of dyspnea (2) Atrial flutter Current Visit: Yes Status: Acute 1 week of dyspnea, mostly on exertion. Found to be in A-flutter with RVR O Dilt and Amio gtts. Titrate Dilt for HR control. Continue Dig. DCCV was considered however cancelled/delayed. Based on Left atrial size on Echo suspect Aflutter with be difficult to rhythm control. Continue Rate control - A/c Qualifiers: Atrial flutter type: unspecified Qualified Code(s): I48.92 - Unspecified atrial flutter (3) Acute exacerbation of chronic obstructive airways disease Current Visit: Yes Status: Acute (4) Lung cancer Current Visit: Yes Status: Chronic 1 patient is following oncology and is receiving nivolumbab every 2 weeks continue with current treatment consult as needed Cardiology will defer this to Hospitalist Qualifiers: Laterality: right Lung location: unspecified part of lung Qualified Code( s): C34.91 - Malignant neoplasm of unspecified part of right bronchus or lung (5) CHF (congestive heart failure) Current Visit: Yes Status: Acute Possibly HR rate related. Will eventually need further work up - but for the moment favor medical therapy and BP allows. Slowly optimize meds. Continue Dig PO Low Dose INDERJIT possibly tomorrow if BP allows. Qualifiers: Congestive heart failure type: systolic Congestive heart failure chronicity : unspecified congestive heart failure chronicity Qualified Code(s): I50.20 - Unspecified systolic (congestive) heart failure Discussion w patient/family: The assessment and plan as outlined above was discussed with the patient and/or family members who expressed understanding and agreement. All questions were answered. Thank you for involving us in the care of your patient. Please call with any questions. Subjective Principal diagnosis: aflutter Interval history: The patient is less SOB at rest - still SOB with minimal activity but overall has improved since yesterday. HR is still tachy - but also better. Aflutter with mild RVR on Tele Objective Vital Signs, Last 4 Hours Temp Pulse Resp BP Pulse Ox 05/31/16 07:37 105 05/31/16 07:00 98.4 F 84 22 116/90 98 05/31/16 06:00 105 84/66 General: Conversant, Other (mildly tachypneic) HEENT: Atraumatic, Normocephaly Neck: No JVD, Normal carotid pulses Cardiac: Other (Tachy and Regular. Port in left chest) Lungs: Normal Breath Sounds, Other (fair air movement) Neuro: Alert and responsive Abdomen: Soft, Non-Tender Skin: No rashes noted on visualized skin Musculoskeletal: No Chest Wall Tenderness Extremities: No Clubbing, No Cyanosis Results 05/31/16 04:15 05/31/16 04:15 Lab Results 05/30/16 05/30/16 05/31/16 13:53 20:52 04:15 WBC 11.5 H Hgb 10.6 L Hct 34.9 L Plt Count 242 APTT 47.2 H 64.0 H Sodium Potassium Chloride Carbon Dioxide BUN Creatinine Glucose Calcium Magnesium 05/31/16 05/31/16 04:15 04:15 WBC Hgb Hct Plt Count APTT 86.0 H Sodium 139 Potassium 4.4 Chloride 101 Carbon Dioxide 30 H BUN 26 Creatinine 0.85 Glucose 132 H Calcium 8.8 Magnesium 1.9 - Imaging and Cardiology Echo: report reviewed - EKG Interpretation EKG results cardiology: personally reviewed (Aflutter) Consult Discharge Plan - Plan Referrals: Korey Grullon MD [Primary Care Provider] - 06/05/16 2:30 pm
[2016-05-31] MEDS: Budesonide/Formoterol 160/4.5 MDI IH SCH ×2 (10:34→21:48)
[2016-05-31] MEDS: Levalbuterol Neb 0.63 MG/3 ML IH SCH ×2 (10:34→21:48)
--- NOTE | 2016-05-31 10:45 | Internal Med Progress Note ---
Date of Encounter: 05/31/16 Time of Encounter: 10:43 - Assessment and plan (1) CHF (congestive heart failure) Current Visit: Yes Status: Acute Assessment and plan: Patient is noted to have worsening ejection fraction compared to previous echocardiogram report. We will start IV Lasix along with fluid restriction, strict urine output monitoring. Continue IV Cardizem drip and amiodarone drip for heart rate control. Patient is not noted to be on beta imelda at home. We will discuss with cardiology. Qualifiers: Congestive heart failure type: systolic Congestive heart failure chronicity : acute on chronic Qualified Code(s): I50.23 - Acute on chronic systolic ( congestive) heart failure (2) Atrial flutter Current Visit: Yes Status: Acute Assessment and plan: New onset atrial flutter with rapid ventricular response. Patient continues to have mild tachycardia, will continue IV Cardizem and amiodarone drips. Cardiology follow-up appreciated. DC CV was canceled yesterday due to echocardiogram evidence of significantly dilated left and right atria, which makes it difficult for rhythm control. Continue anticoagulation with IV heparin drip. Continue telemetry monitoring. Echocardiogram shows severely decreased EF around 30%, indeterminate diastolic function, severe biatrial dilation, mild biventricular dilation, mild MR and mild pulmonary hypertension. High risk for complications. Qualifiers: Atrial flutter type: unspecified Qualified Code(s): I48.92 - Unspecified atrial flutter (3) Ascites Current Visit: Yes Status: Chronic Assessment and plan: Patient has known history of metastatic lung cancer with liver metastases and possibly malignant ascites. May require paracentesis if he continues to have dyspnea, after heart rate control. We will change Lasix to IV form. Qualifiers: Ascites type: malignant Qualified Code(s): R18.0 - Malignant ascites (4) COPD (chronic obstructive pulmonary disease) Current Visit: Yes Status: Chronic Assessment and plan: Not noted to be in acute exacerbation. Continue scheduled bronchodilators, inhaled corticosteroids and supplemental oxygen as needed. Patient is noted to be on nocturnal home oxygen at 2 L/m via nasal cannula. Qualifiers: COPD type: unspecified COPD Qualified Code(s): J44.9 - Chronic obstructive pulmonary disease, unspecified (5) Liver metastases Current Visit: Yes Status: Chronic (6) Lung cancer Current Visit: Yes Status: Chronic Qualifiers: Laterality: right Lung location: unspecified part of lung Qualified Code( s): C34.91 - Malignant neoplasm of unspecified part of right bronchus or lung (7) Anemia Current Visit: Yes Status: Chronic Qualifiers: Anemia type: unspecified type Qualified Code(s): D64.9 - Anemia, unspecified (8) CLL (chronic lymphocytic leukemia) Current Visit: Yes Status: Chronic - Subjective Interval history: Continues to have some dyspnea at rest; cardioversion canceled yesterday due to dilated atrial size on Echo; patient reports no chest pain, palpitations, dizziness; - Constitutional Vitals: Temp Pulse Resp BP Pulse Ox 98.4 F 116 18 106/62 95 05/31/16 08:59 05/31/16 08:59 05/31/16 10:35 05/31/16 08:59 05/31/16 10:35 General appearance: Present: mild distress, A&O X 3, answers questions appropriately - Respiratory Respiratory exam: Present: CTAB. Absent: accessory muscle use, rales, rhonchi, wheezes - Cardiovascular Cardiovascular exam: Present: irregular rhythm, +S1, +S2, tachycardia. Absent: diastolic murmur, gallop, rubs, systolic murmur - GI/Abdominal GI/Abdominal exam: Present: distended (ascites and fluid thrill+), normal bowel sounds, soft, no peritoneal signs. Absent: tenderness - Extremities Exam Extremities exam: Present: full ROM, pedal edema (3+ pitting pedal edema B/L), warm, radial pulses palpable and symetrical. Absent: calf tenderness, cyanotic Internal Medicine: Result - Labs CBC & Chem 7: 05/31/16 04:15 05/31/16 04:15 Labs: Short CBC 05/31/16 Range/Units 04:15 WBC 11.5 H (4.3-11.1) K/mcL Hgb 10.6 L (12.9-16.9) g/dL Hct 34.9 L (37.5-50.1) % Plt Count 242 (140-400) K/mcL Neutrophils # 7.4 (1.6-8.9) K/mcL BMP 05/31/16 04:15 Sodium 139 Potassium 4.4 Chloride 101 Carbon Dioxide 30 H BUN 26 Creatinine 0.85 Glucose 132 H Calcium 8.8 - ABG Interpretation ABG results: PT/INR, D-dimer PT 11.8 Seconds (9.4-12.1) 05/29/16 17:00 Consult Discharge Plan - Plan Referrals: Korey Grullon MD [Primary Care Provider] - 06/05/16 2:30 pm
[2016-05-31] MEDS: *HR* HYDROcodone/Acet 7.5/325 mg TABLET PO PRN (18:25)
[2016-05-31] MEDS: Furosemide 20 MG/2 ML VIAL IVP SCH (21:23)
[2016-05-31] MEDS: Heparin 25,000 UNIT/500 ML D5W 25,000 UNIT/500 ML MLS IVC SCH (21:33)
[2016-06-01 05:02] LABS: Basophils % 0.3 %; Eosinophils # 0.1 K/mcL (0.0-0.6); Eosinophils % 1.1 %; Hematocrit 34.1 % (37.5-50.1); Hemoglobin 10.3 g/dL (12.9-16.9); Immature Granulocytes % 0.7 % (0-4); Lymphocytes % 32.3 %; Mean Corpuscular HGB Conc 30.2 g/dL (31.6-35.5); Mean Corpuscular Volume 86.1 fL (83.0-100.0); Mean Platelet Volume 9.9 fL (9.4-12.4); Monocytes # 0.9 K/mcL (0.0-1.3); Monocytes % 9.5 %; Neutrophils # 5.2 K/mcL (1.6-8.9); Platelet Count 211 K/mcL (140-400); Red Blood Count 3.96 M/mcL (4.19-5.50); Red Cell Distribution Width 18.5 % (11.5-14.5); Segmented Neutrophils % 56.1 %
[2016-06-01 05:11] LABS: BUN/Creatinine Ratio 26 (6-26); Blood Urea Nitrogen 21 mg/dL (8-26); Calcium 8.8 mg/dL (8.6-10.8); Carbon Dioxide 29 mEq/L (19-29); Chloride 101 mEq/L (98-109); Glucose 132 mg/dL (70-99); Magnesium 1.6 mg/dL (1.6-2.6); Osmolality,Calculated 293 (280-300); Potassium 3.9 mEq/L (3.5-4.5); Sodium 139 mEq/L (136-145); eGFR For African Americans > 60 (> 60); eGFR For Non-African Americans > 60 (> 60)
[2016-06-01] MEDS: Insulin LISPRO 300 UNITS/3 ML VIAL SQ SCH ×4 (08:02→22:10)
[2016-06-01] MEDS: *HR* Digoxin 0.125 MG TABLET PO SCH (09:31)
[2016-06-01] MEDS: *HR* Rivaroxaban 10 MG TABLET PO SCH (09:31)
[2016-06-01] MEDS: Isosorbide MONOnitrate (24 HR) 60 MG TAB.ER.24H PO SCH (09:31)
[2016-06-01] MEDS: Cyanocobalamin (B-12) 1,000 MCG TABLET PO SCH (09:31)
[2016-06-01] MEDS: Aspirin Enteric Coated 81 MG Tablet PO SCH (09:32)
[2016-06-01] MEDS: Furosemide 20 MG/2 ML VIAL IVP SCH ×2 (09:32→20:12)
[2016-06-01] MEDS: Multivit/Ca/Min/Fe/FA 1 TAB TABLET PO SCH (09:32)
--- NOTE | 2016-06-01 09:42 | Cardiology Progress Note ---
Date of Encounter: 06/01/16 Time of Encounter: 09:40 Assessment and Plan (1) Dyspnea Current Visit: Yes Status: Acute Dyspnea likely secondary to COPD vs pulmonary congestion from atrial flutter vs pleural effusions Echo shows LV systolic dysfunction which is probably contributing to SOB. Continue medical therapy and rate control. Qualifiers: Dyspnea type: dyspnea on exertion Qualified Code(s): R06.09 - Other forms of dyspnea (2) Atrial flutter Current Visit: Yes Status: Acute 1 week of dyspnea, mostly on exertion. Found to be in A-flutter with RVR Dilt and Amio gtts. Continue Dig. Add Coreg Hopefully titrate down/off Dilt gtt. Possibly change to PO Amio - tomorrow if off Dilt and HR controlled. DCCV was considered however cancelled/delayed. Based on Left atrial size on Echo suspect Aflutter with be difficult to rhythm control. Continue Rate control - A/c - Xerlto started today. Discussed additional procedures - patient is not eager to consider anything else at present. Qualifiers: Atrial flutter type: unspecified Qualified Code(s): I48.92 - Unspecified atrial flutter (3) Acute exacerbation of chronic obstructive airways disease Current Visit: Yes Status: Acute (4) Lung cancer Current Visit: Yes Status: Chronic 1 patient is following oncology and is receiving nivolumbab every 2 weeks continue with current treatment consult as needed Cardiology will defer this to Hospitalist Qualifiers: Laterality: right Lung location: unspecified part of lung Qualified Code( s): C34.91 - Malignant neoplasm of unspecified part of right bronchus or lung (5) CHF (congestive heart failure) Current Visit: Yes Status: Acute Possibly HR rate related. Will eventually need further work up - but for the moment favor medical therapy and BP allows. (no immediate procedures planned) Slowly optimize meds. Continue Dig PO Low Dose Coreg Qualifiers: Congestive heart failure type: systolic Congestive heart failure chronicity : acute on chronic Qualified Code(s): I50.23 - Acute on chronic systolic ( congestive) heart failure Discussion w patient/family: The assessment and plan as outlined above was discussed with the patient and/or family members who expressed understanding and agreement. All questions were answered. Thank you for involving us in the care of your patient. Please call with any questions. Subjective Principal diagnosis: aflutter Interval history: The patient is less SOB at rest - still SOB with minimal activity but overall has improved since yesterday. Dilt was weaned down to 5/hour and HR has been OK Objective Vital Signs, Last 4 Hours Temp Pulse Resp BP Pulse Ox 06/01/16 08:03 94 106/66 06/01/16 07:43 98.0 F 81 16 93/76 96 General: Conversant, No Apparent Distress HEENT: Atraumatic, Mucus Membranes Moist Neck: No JVD Cardiac: Other (Tachy and Irreg, no S3) Lungs: Other (reduced air movement, tachypneic sitting up after a little activity) Neuro: Alert and responsive, No focal deficits noted Abdomen: Soft, Non-Tender Skin: No rashes noted on visualized skin Musculoskeletal: No Chest Wall Tenderness Extremities: No Clubbing, No Edema Results 06/01/16 04:35 06/01/16 04:35 Lab Results 06/01/16 06/01/16 06/01/16 04:35 04:35 07:24 WBC 9.2 Hgb 10.3 L Hct 34.1 L Plt Count 211 APTT 83.6 H Sodium 139 Potassium 3.9 Chloride 101 Carbon Dioxide 29 BUN 21 Creatinine 0.80 Glucose 132 H Calcium 8.8 Magnesium 1.6 - Imaging and Cardiology Echo: report reviewed, image reviewed (Markedly dilated Atria, Reduced EF) Consult Discharge Plan - Plan Referrals: Korey Grullon MD [Primary Care Provider] - 06/05/16 2:30 pm
[2016-06-01] MEDS: Budesonide/Formoterol 160/4.5 MDI IH SCH ×2 (10:24→21:38)
[2016-06-01] MEDS: Levalbuterol Neb 0.63 MG/3 ML IH SCH ×2 (10:24→21:38)
[2016-06-01] MEDS: Amiodarone Premix 360 MG/200 ML BAG IVC SCH ×2 (11:45→22:35)
[2016-06-01] MEDS ORDERED: *HR* Heparin 5,000 UNIT/ML VIAL IVP PRN ×2 (12:32)
--- NOTE | 2016-06-01 12:34 | Internal Med Progress Note ---
Date of Encounter: 06/01/16 Time of Encounter: 11:10 - Assessment and plan (1) CHF (congestive heart failure) Current Visit: Yes Status: Acute Assessment and plan: Patient is noted to have worsening ejection fraction compared to previous echocardiogram report. Improving clinically slowly. Noted to have good urine output. Continue IV Lasix, fluid restriction and strict urine output monitoring. Cardiology follow-up appreciated, has been started on beta imelda and digoxin. Currently on IV Cardizem and amiodarone drips and heart rate is noted to be better controlled. Plan to wean off Cardizem drip. Qualifiers: Congestive heart failure type: systolic Congestive heart failure chronicity : acute on chronic Qualified Code(s): I50.23 - Acute on chronic systolic ( congestive) heart failure (2) Atrial flutter Current Visit: Yes Status: Acute Assessment and plan: Improved heart rate. Wean off Cardizem drip. Continue IV amiodarone drip, plan to start oral amiodarone tomorrow. Continue anticoagulation with IV heparin drip in anticipation of paracentesis tomorrow, after which he can be started on oral Xarelto. Qualifiers: Atrial flutter type: unspecified Qualified Code(s): I48.92 - Unspecified atrial flutter (3) Ascites Current Visit: Yes Status: Chronic Assessment and plan: Continue IV diuretics. Possible malignant ascites. Plan for ultrasound-guided paracentesis by IR tomorrow. Qualifiers: Ascites type: malignant Qualified Code(s): R18.0 - Malignant ascites (4) COPD (chronic obstructive pulmonary disease) Current Visit: Yes Status: Chronic Qualifiers: COPD type: unspecified COPD Qualified Code(s): J44.9 - Chronic obstructive pulmonary disease, unspecified (5) Liver metastases Current Visit: Yes Status: Chronic (6) Lung cancer Current Visit: Yes Status: Chronic Qualifiers: Laterality: right Lung location: unspecified part of lung Qualified Code( s): C34.91 - Malignant neoplasm of unspecified part of right bronchus or lung (7) Anemia Current Visit: Yes Status: Chronic Assessment and plan: Hemoglobin noted to be stable on anticoagulation. Qualifiers: Anemia type: unspecified type Qualified Code(s): D64.9 - Anemia, unspecified (8) CLL (chronic lymphocytic leukemia) Current Visit: Yes Status: Chronic - Subjective Interval history: Feels better; improving dyspnea; no chest pain or palpitations; has persistent leg swelling; HR controlled now; - Constitutional Vitals: Temp Pulse Resp BP Pulse Ox 98.0 F 87 16 98/53 97 06/01/16 11:38 06/01/16 11:42 06/01/16 11:38 06/01/16 11:42 06/01/16 11:38 General appearance: Present: A&O X 3, answers questions appropriately - Respiratory Respiratory exam: Present: CTAB. Absent: accessory muscle use, rales, rhonchi, wheezes - Cardiovascular Cardiovascular exam: Present: irregular rhythm, +S1, +S2. Absent: diastolic murmur, gallop, rubs, systolic murmur - GI/Abdominal GI/Abdominal exam: Present: distended (ascites+), normal bowel sounds, soft, no peritoneal signs. Absent: tenderness - Extremities Exam Extremities exam: Present: full ROM, pedal edema (3+ pitting pedal edema B/L), warm, radial pulses palpable and symetrical. Absent: calf tenderness, cyanotic - Neurological Exam Neurological exam: Present: CN II-XII intact, oriented X3, no focal deficits. Absent: pronater drift, facial droop, speech deficit Internal Medicine: Result - Labs CBC & Chem 7: 06/01/16 12:40 06/01/16 04:35 Labs: Short CBC 06/01/16 Range/Units 04:35 WBC 9.2 (4.3-11.1) K/mcL Hgb 10.3 L (12.9-16.9) g/dL Hct 34.1 L (37.5-50.1) % Plt Count 211 (140-400) K/mcL Neutrophils # 5.2 (1.6-8.9) K/mcL BMP 06/01/16 04:35 Sodium 139 Potassium 3.9 Chloride 101 Carbon Dioxide 29 BUN 21 Creatinine 0.80 Glucose 132 H Calcium 8.8 - ABG Interpretation ABG results: PT/INR, D-dimer PT 11.8 Seconds (9.4-12.1) 05/29/16 17:00 Consult Discharge Plan - Plan Referrals: Korey Grullon MD [Primary Care Provider] - 06/05/16 2:30 pm
[2016-06-01 12:49] LABS: Hematocrit 36.2 % (37.5-50.1); Hemoglobin 10.7 g/dL (12.9-16.9); Immature Platelets 4.3 % (1.1-6.1); Mean Corpuscular HGB Conc 29.6 g/dL (31.6-35.5); Mean Corpuscular Hemoglobin 25.8 pg (28.0-33.3); Mean Corpuscular Volume 87.2 fL (83.0-100.0); Mean Platelet Volume 9.9 fL (9.4-12.4); Red Blood Count 4.15 M/mcL (4.19-5.50); Red Cell Distribution Width 18.5 % (11.5-14.5)
[2016-06-01] MEDS: Heparin 25,000 UNIT/500 ML D5W 25,000 UNIT/500 ML MLS IVC SCH ×2 (12:50→22:00)
[2016-06-01 12:56] LABS: INR 2.3; Prothrombin Time 25.8 Seconds (9.4-12.1)
[2016-06-01 12:57] LABS: Activated Partial Thrombo Time 44.3 Seconds (26.0-36.0)
--- NOTE | 2016-06-01 20:14 | Electrocardiograph Report ---
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
[2016-06-02 01:20] LABS: Activated Partial Thrombo Time 118.3 Seconds (26.0-36.0)
[2016-06-02 01:41] LABS: Heparin anti-factor XA UFH 1.2 IU/mL (0.30-0.70)
[2016-06-02] MEDS: Insulin LISPRO 300 UNITS/3 ML VIAL SQ SCH ×4 (07:44→22:57)
[2016-06-02] MEDS: *HR* Digoxin 0.125 MG TABLET PO SCH (07:55)
[2016-06-02] MEDS: Cyanocobalamin (B-12) 1,000 MCG TABLET PO SCH (07:55)
[2016-06-02] MEDS: Furosemide 20 MG/2 ML VIAL IVP SCH (07:55)
[2016-06-02] MEDS: Aspirin Enteric Coated 81 MG Tablet PO SCH (07:56)
[2016-06-02] MEDS: Isosorbide MONOnitrate (24 HR) 60 MG TAB.ER.24H PO SCH (07:56)
[2016-06-02] MEDS: Multivit/Ca/Min/Fe/FA 1 TAB TABLET PO SCH (07:56)
[2016-06-02 08:40] LABS: INR 1.3; Prothrombin Time 14.3 Seconds (9.4-12.1)
[2016-06-02] MEDS ORDERED: *HR* Heparin 5,000 UNIT/ML VIAL IVP ONE (09:00)
[2016-06-02] MEDS ORDERED: Heparin 25,000 UNIT/500 ML D5W 25,000 UNIT/500 ML MLS IVC SCH (09:00)
--- NOTE | 2016-06-02 09:48 | Cardiology Progress Note ---
Date of Encounter: 06/02/16 Time of Encounter: 09:45 Assessment and Plan (1) Atrial flutter Current Visit: Yes Status: Acute Diltiazem was stopped yesterday. Appears to be due to low BP Currently on Amio gtt at 0.5mg/min and digoxin 0.125 QD DCCV was cancelled. He is unable to lay flat and may require anesthesia if decide to go forward with DCCV. He would like to try chemical cardioversion first. Still on heparin drip Appears to be currently rate controlled and symptoms are much improved from presentation Will transition to PO amio and increase digoxin with digoxin level in AM Qualifiers: Atrial flutter type: unspecified Qualified Code(s): I48.92 - Unspecified atrial flutter (2) Dyspnea Current Visit: Yes Status: Acute Dyspnea likely secondary to AECOPD vs CHF from uncontrolled atrial flutter Symptoms are much improved after treatment for both He reports symptoms are essentially at his baseline at home Qualifiers: Dyspnea type: dyspnea on exertion Qualified Code(s): R06.09 - Other forms of dyspnea (3) Lung cancer Current Visit: Yes Status: Acute Managed by primary team. Qualifiers: Laterality: unspecified laterality Lung location: unspecified part of lung Qualified Code(s): C34.90 - Malignant neoplasm of unspecified part of unspecified bronchus or lung (4) Acute exacerbation of chronic obstructive airways disease Current Visit: Yes Status: Acute Managed by primary team (5) CHF (congestive heart failure) Current Visit: Yes Status: Acute Likely related to the uncontrolled rate of the atrial flutter on presentation Echo shows EF of 30-35% with global dysfunction and left atrial enlargement Symptoms are much improved after rate control Qualifiers: Congestive heart failure type: systolic Congestive heart failure chronicity : acute on chronic Qualified Code(s): I50.23 - Acute on chronic systolic ( congestive) heart failure Discussion w patient/family: The assessment and plan as outlined above was discussed with the patient and/or family members who expressed understanding and agreement. All questions were answered. Thank you for involving us in the care of your patient. Please call with any questions. Subjective Principal diagnosis: aflutter Interval history: Presented with dyspnea likely due to CHF from uncrontrolled a-flutter. HR has been much more controlled with HR in the 90's overnight. BP has also improved with BP of 108/91 this AM. In reading prior notes attempting chemical cardioversion with amio and digoxin. He reports substantial improvement in his symptoms. He reports improvement in fullness in his abdomen, decreased LE edema , and almost back to baseline in CATHI. He denies new chest discomfort. Objective Vital Signs, Last 4 Hours Temp Pulse Resp BP Pulse Ox 06/02/16 09:00 75 89/53 06/02/16 08:05 88 108/91 06/02/16 07:41 97.8 F 94 18 104/64 99 General: Conversant HEENT: Atraumatic Neck: No JVD Cardiac: Other (atrial flutter without 1:1 conduction) Lungs: Other (decreased breath sounds bilaterally) Neuro: Alert and responsive Abdomen: Soft Skin: No rashes noted on visualized skin Extremities: No Cyanosis, No Edema (+1 LE edema) Results 06/01/16 12:40 06/01/16 04:35 Lab Results 06/01/16 06/01/16 06/01/16 12:40 12:40 19:26 WBC 8.7 Hgb 10.7 L Hct 36.2 L Plt Count 242 INR 2.3 D APTT 44.3 H 92.6 H D 06/02/16 06/02/16 00:52 08:14 WBC Hgb Hct Plt Count INR 1.3 APTT 118.3 H* 67.0 H Consult Discharge Plan - Plan Referrals: Korey Grullon MD [Primary Care Provider] - 06/05/16 2:30 pm
[2016-06-02] MEDS: Budesonide/Formoterol 160/4.5 MDI IH SCH ×2 (10:23→21:31)
[2016-06-02] MEDS: Levalbuterol Neb 0.63 MG/3 ML IH SCH ×2 (10:23→21:31)
[2016-06-02] MEDS: Amiodarone Premix 360 MG/200 ML BAG IVC SCH (10:47)
--- NOTE | 2016-06-02 11:18 | Internal Med Progress Note ---
Date of Encounter: 06/02/16 Time of Encounter: 11:15 - Assessment and plan (1) CHF (congestive heart failure) Current Visit: Yes Status: Acute Assessment and plan: Patient is noted to have worsening ejection fraction compared to previous echocardiogram report. Improving clinically and breathing better. Noted to have good urine output. Change Lasix to oral form, continue fluid restriction and strict urine output monitoring. Cardiology follow-up appreciated, has been started on beta imelda and digoxin. Off IV Cardizem and amiodarone drips. Started on oral amiodarone today. DC CV deferred for now. Qualifiers: Congestive heart failure type: systolic Congestive heart failure chronicity : acute on chronic Qualified Code(s): I50.23 - Acute on chronic systolic ( congestive) heart failure (2) Atrial flutter Current Visit: Yes Status: Acute Assessment and plan: Improved heart rate. Off IV Cardizem and amiodarone drips. Has been started on oral digoxin and amiodarone. DC CV has been held for now as patient cannot lie down flat. Continue anticoagulation with IV heparin drip in anticipation of paracentesis, after which he can be started on oral Xarelto. Qualifiers: Atrial flutter type: unspecified Qualified Code(s): I48.92 - Unspecified atrial flutter (3) Ascites Current Visit: Yes Status: Chronic Assessment and plan: Continue Lasix. Possible malignant ascites. Plan for ultrasound-guided paracentesis by IR today, fluid to be sent for pathology. Qualifiers: Ascites type: malignant Qualified Code(s): R18.0 - Malignant ascites (4) COPD (chronic obstructive pulmonary disease) Current Visit: Yes Status: Chronic Assessment and plan: Not noted to be in acute exacerbation. Continue scheduled bronchodilators, inhaled corticosteroids and supplemental oxygen as needed. Patient is noted to be on nocturnal home oxygen at 2 L/m via nasal cannula. Qualifiers: COPD type: unspecified COPD Qualified Code(s): J44.9 - Chronic obstructive pulmonary disease, unspecified (5) Liver metastases Current Visit: Yes Status: Chronic (6) Lung cancer Current Visit: Yes Status: Chronic Qualifiers: Laterality: right Lung location: unspecified part of lung Qualified Code( s): C34.91 - Malignant neoplasm of unspecified part of right bronchus or lung (7) Anemia Current Visit: Yes Status: Chronic Qualifiers: Anemia type: unspecified type Qualified Code(s): D64.9 - Anemia, unspecified (8) CLL (chronic lymphocytic leukemia) Current Visit: Yes Status: Chronic - Subjective Interval history: Feels better; had good urine output; improved shortness of breath; persistent leg swelling and abdominal distension; HR controlled now; - Constitutional Vitals: Temp Pulse Resp BP Pulse Ox 97.8 F 68 18 100/48 99 06/02/16 07:41 06/02/16 10:00 06/02/16 07:41 06/02/16 10:00 06/02/16 07:41 General appearance: Present: A&O X 3, answers questions appropriately - Respiratory Respiratory exam: Present: CTAB. Absent: accessory muscle use, rales, rhonchi, wheezes - Cardiovascular Cardiovascular exam: Present: irregular rhythm, +S1, +S2. Absent: diastolic murmur, gallop, rubs, systolic murmur - GI/Abdominal GI/Abdominal exam: Present: distended (ascites+), normal bowel sounds, soft, no peritoneal signs. Absent: tenderness - Extremities Exam Extremities exam: Present: full ROM, pedal edema, warm, radial pulses palpable and symetrical. Absent: calf tenderness, cyanotic Internal Medicine: Result - Labs CBC & Chem 7: 06/01/16 12:40 06/01/16 04:35 Labs: Short CBC 06/01/16 Range/Units 12:40 WBC 8.7 (4.3-11.1) K/mcL Hgb 10.7 L (12.9-16.9) g/dL Hct 36.2 L (37.5-50.1) % Plt Count 242 (140-400) K/mcL - ABG Interpretation ABG results: PT/INR, D-dimer PT 14.3 Seconds (9.4-12.1) H 06/02/16 08:14 Consult Discharge Plan - Plan Referrals: Korey Grullon MD [Primary Care Provider] - 06/05/16 2:30 pm
[2016-06-02] MEDS ORDERED: *HR* Digoxin 0.125 MG TABLET PO ONE (12:06)
[2016-06-02] MEDS: *HR* Amiodarone 200 MG TABLET PO SCH (12:37)
[2016-06-02] MEDS: Furosemide 20 MG TABLET PO SCH (18:13)
[2016-06-03] MEDS: Insulin LISPRO 300 UNITS/3 ML VIAL SQ SCH ×4 (07:37→20:36)
[2016-06-03] MEDS: *HR* Digoxin 0.125 MG TABLET PO SCH (07:42)
[2016-06-03] MEDS: *HR* HYDROcodone/Acet 7.5/325 mg TABLET PO PRN ×2 (07:42→19:49)
[2016-06-03] MEDS: Cyanocobalamin (B-12) 1,000 MCG TABLET PO SCH (07:42)
[2016-06-03] MEDS: Furosemide 20 MG TABLET PO SCH ×2 (07:42→17:09)
[2016-06-03] MEDS: Aspirin Enteric Coated 81 MG Tablet PO SCH (07:43)
[2016-06-03] MEDS: Isosorbide MONOnitrate (24 HR) 60 MG TAB.ER.24H PO SCH (07:43)
[2016-06-03] MEDS: Multivit/Ca/Min/Fe/FA 1 TAB TABLET PO SCH (07:43)
[2016-06-03] MEDS: *HR* Amiodarone 200 MG TABLET PO SCH (07:43)
[2016-06-03] MEDS: Heparin 25,000 UNIT/500 ML D5W 25,000 UNIT/500 ML MLS IVC SCH (07:49)
[2016-06-03] MEDS ORDERED: *HR* Digoxin 0.25 MG TABLET PO SCH (09:00)
[2016-06-03] MEDS: Levalbuterol Neb 0.63 MG/3 ML IH SCH ×2 (10:48→21:54)
[2016-06-03] MEDS: Budesonide/Formoterol 160/4.5 MDI IH SCH ×2 (10:48→21:54)
--- NOTE | 2016-06-03 17:02 | Internal Med Progress Note ---
Date of Encounter: 06/03/16 Time of Encounter: 10:00 - Assessment and plan (1) Dyspnea Current Visit: Yes Status: Acute Assessment and plan: Consider multifactoral including Lung cancer, COPD, CHF, and A Flutter with RVR. Improved now, will continue treatment for underlying disease. Qualifiers: Dyspnea type: dyspnea on exertion Qualified Code(s): R06.09 - Other forms of dyspnea (2) Ascites Current Visit: Yes Status: Chronic Assessment and plan: Continue Lasix. Possible malignant ascites. IR did bedside US, not drainable b /o small amount of ascites. Qualifiers: Ascites type: malignant Qualified Code(s): R18.0 - Malignant ascites (3) Atrial flutter Current Visit: Yes Status: Acute Assessment and plan: Improved heart rate. Off IV Cardizem and amiodarone drips. Has been started on oral digoxin and amiodarone. DC CV has been held for now as patient cannot lie down flat. Continue anticoagulation with oral Xarelto. Qualifiers: Atrial flutter type: unspecified Qualified Code(s): I48.92 - Unspecified atrial flutter (4) Lung cancer Current Visit: Yes Status: Acute Assessment and plan: Pt is a following oncologist as outpatient Qualifiers: Laterality: unspecified laterality Lung location: unspecified part of lung Qualified Code(s): C34.90 - Malignant neoplasm of unspecified part of unspecified bronchus or lung (5) DVT prophylaxis Current Visit: Yes Status: Acute Assessment and plan: Patient is on xarelto (6) COPD (chronic obstructive pulmonary disease) Current Visit: Yes Status: Chronic Assessment and plan: Not noted to be in acute exacerbation. Continue scheduled bronchodilators, inhaled corticosteroids and supplemental oxygen as needed. Patient is noted to be on nocturnal home oxygen at 2 L/m via nasal cannula at home. Qualifiers: COPD type: unspecified COPD Qualified Code(s): J44.9 - Chronic obstructive pulmonary disease, unspecified (7) CHF (congestive heart failure) Current Visit: Yes Status: Acute Assessment and plan: Patient is noted to have worsening ejection fraction compared to previous echocardiogram report. Improving clinically and breathing better. Noted to have good urine output. Change Lasix to oral form, continue fluid restriction and strict urine output monitoring. Cardiology follow-up appreciated, has been started on beta imelda and digoxin. Off IV Cardizem and amiodarone drips. Started on oral amiodarone today. DC CV deferred for now. Qualifiers: Congestive heart failure type: systolic Congestive heart failure chronicity : acute on chronic Qualified Code(s): I50.23 - Acute on chronic systolic ( congestive) heart failure (8) Liver metastases Current Visit: Yes Status: Chronic Assessment and plan: Patient is following oncologist as outpatient. - Time Spent With Patient 25 - 35 minutes - Subjective Interval history: Patient is a 76-year-old male admitted for shortness of breath. His past medical history is significant for lung cancer with liver metastases, COPD, CHF. Patient was found A. flutter with rapid ventricular response on admission. Patient was seen and examined, He is awake alert, oriented 3. Less shortness of breath, gets to his baseline. Vital signs stable. Interventional radiology did bedside US, ascites is not enough to drainable. Will DC heparin drip and resume xarelto. Plan to DC patient home if condition continues stable. - Constitutional Vitals: Temp Pulse Resp BP Pulse Ox 98.3 F 75 16 102/54 99 06/03/16 15:25 06/03/16 16:00 06/03/16 15:25 06/03/16 15:25 06/03/16 15:25 General appearance: Present: A&O X 3, answers questions appropriately - Head Head exam: Present: atraumatic, normocephalic - Eye Eye exam: Present: PERRL, conjuntiva pink, sclera anicteric Pupils: Present: PERRL - Neck Neck exam general surgery: Present: supple, trachea midline. Absent: lymphadenopathy - Respiratory Respiratory exam: Present: CTAB. Absent: accessory muscle use, rales, rhonchi, wheezes - Cardiovascular Cardiovascular exam: Present: RRR, +S1, +S2. Absent: diastolic murmur, gallop, rubs, systolic murmur - GI/Abdominal GI/Abdominal exam: Present: normal bowel sounds, soft, no peritoneal signs. Absent: distended, tenderness - Extremities Exam Extremities exam: Present: warm, radial pulses palpable and symetrical. Absent : calf tenderness, cyanotic, pedal edema - Neurological Exam Neurological exam: Present: CN II-XII intact, oriented X3, no focal deficits. Absent: pronater drift, facial droop, speech deficit - Skin Skin exam: Present: dry, intact Internal Medicine: Result - Labs CBC & Chem 7: 06/01/16 12:40 06/01/16 04:35 - ABG Interpretation ABG results: PT/INR, D-dimer PT 14.3 Seconds (9.4-12.1) H 06/02/16 08:14 - Impressions Impressions Paracentesis Ultrasound 06/03/16 00:00 IMPRESSION: A trace of fluid was seen in the abdomen. Paracentesis was not performed. D/ / 06/03/2016 10:19:49 Monserrat Delgado MD / [email or web address] Interpreting Provider: Monserrat Delgado MD Consult Discharge Plan - Plan Referrals: Korey Grullon MD [Primary Care Provider] - 06/05/16 2:30 pm
[2016-06-03] MEDS: *HR* Rivaroxaban 10 MG TABLET PO SCH (17:09)
[2016-06-04 05:11] LABS: Basophils % 0.4 %; Eosinophils # 0.1 K/mcL (0.0-0.6); Eosinophils % 1.4 %; Hematocrit 34.2 % (37.5-50.1); Immature Granulocytes % 0.5 % (0-4); Lymphocytes # 2.2 K/mcL (0.6-4.6); Lymphocytes % 28.5 %; Mean Corpuscular HGB Conc 29.2 g/dL (31.6-35.5); Mean Corpuscular Hemoglobin 26.2 pg (28.0-33.3); Mean Corpuscular Volume 89.5 fL (83.0-100.0); Mean Platelet Volume 10.6 fL (9.4-12.4); Monocytes # 0.8 K/mcL (0.0-1.3); Monocytes % 10.7 %; Neutrophils # 4.6 K/mcL (1.6-8.9); Platelet Count 159 K/mcL (140-400); Red Blood Count 3.82 M/mcL (4.19-5.50); Red Cell Distribution Width 17.7 % (11.5-14.5); Segmented Neutrophils % 58.5 %
[2016-06-04 05:35] LABS: BUN/Creatinine Ratio 36 (6-26); Blood Urea Nitrogen 27 mg/dL (8-26); Calcium 9.1 mg/dL (8.6-10.8); Carbon Dioxide 36 mEq/L (19-29); Chloride 99 mEq/L (98-109); Glucose 120 mg/dL (70-99); Osmolality,Calculated 302 (280-300); Potassium 3.9 mEq/L (3.5-4.5); Sodium 143 mEq/L (136-145); eGFR For African Americans > 60 (> 60); eGFR For Non-African Americans > 60 (> 60)
[2016-06-04] MEDS: Insulin LISPRO 300 UNITS/3 ML VIAL SQ SCH ×2 (07:40→12:08)
[2016-06-04] MEDS: *HR* HYDROcodone/Acet 7.5/325 mg TABLET PO PRN (07:46)
[2016-06-04] MEDS: Furosemide 20 MG TABLET PO SCH (07:47)
[2016-06-04] MEDS: Isosorbide MONOnitrate (24 HR) 60 MG TAB.ER.24H PO SCH (08:38)
[2016-06-04] MEDS: *HR* Amiodarone 200 MG TABLET PO SCH (08:38)
[2016-06-04] MEDS: *HR* Digoxin 0.125 MG TABLET PO SCH (08:38)
[2016-06-04] MEDS: Aspirin Enteric Coated 81 MG Tablet PO SCH (08:38)
[2016-06-04] MEDS: Cyanocobalamin (B-12) 1,000 MCG TABLET PO SCH (08:38)
[2016-06-04] MEDS: Multivit/Ca/Min/Fe/FA 1 TAB TABLET PO SCH (08:38)
--- NOTE | 2016-06-04 09:58 | Cardiology Progress Note ---
Date of Encounter: 06/04/16 Time of Encounter: 09:56 Assessment and Plan (1) Atrial flutter Current Visit: Yes Status: Acute Currently rate controlled On oral amiodarone, digoxin, and carvedilol Heparin drip is stopped and is currently on Xarelto Cardiology will be signing off, please call with any additional questions/ concerns. Recommend outpatient clinic follow up due to atrial flutter and medication management Qualifiers: Atrial flutter type: unspecified Qualified Code(s): I48.92 - Unspecified atrial flutter (2) Dyspnea Current Visit: Yes Status: Acute Symptoms are markedly improved after rate control of A-flutter EF is decreased on echo from 45% on 12/2015 to 30-35% currently Dyspnea likely due to CHF from uncontrolled rate Qualifiers: Dyspnea type: dyspnea on exertion Qualified Code(s): R06.09 - Other forms of dyspnea (3) Lung cancer Current Visit: Yes Status: Acute Managed by primary team. Qualifiers: Laterality: unspecified laterality Lung location: unspecified part of lung Qualified Code(s): C34.90 - Malignant neoplasm of unspecified part of unspecified bronchus or lung (4) Acute exacerbation of chronic obstructive airways disease Current Visit: Yes Status: Acute Managed by primary team (5) CHF (congestive heart failure) Current Visit: Yes Status: Acute Likely related to the uncontrolled rate of the atrial flutter on presentation Echo shows EF of 30-35% with global dysfunction and left atrial enlargement This is down from 45% on 12/2015 Symptoms are much improved after rate control Will repeat echo as an outpatient for likely return of ejection fraction Qualifiers: Congestive heart failure type: systolic Congestive heart failure chronicity : acute on chronic Qualified Code(s): I50.23 - Acute on chronic systolic ( congestive) heart failure Discussion w patient/family: The assessment and plan as outlined above was discussed with the patient and/or family members who expressed understanding and agreement. All questions were answered. Thank you for involving us in the care of your patient. Please call with any questions. Subjective Principal diagnosis: aflutter Interval history: He is much improved and says his dyspnea is better than it has been in weeks. HR has been in the 90's. BP is improved and is stable. He has been transitioned to oral amiodarone. Bedside U/S was performed and there was not enough peritoneal fluid to do a paracentesis. He is not on Xarelto. Objective Vital Signs, Last 4 Hours Temp Pulse Resp BP Pulse Ox 06/04/16 07:45 80 06/04/16 07:29 97.8 F 78 16 109/57 97 General: Conversant HEENT: Atraumatic Neck: No JVD Cardiac: Other (regular rate. In atrial flutter with controlled rate on monitor.) Lungs: Normal Breath Sounds Neuro: Alert and responsive Abdomen: Soft Skin: No rashes noted on visualized skin Extremities: No Cyanosis, No Edema Results 06/04/16 04:24 06/04/16 04:24 Lab Results 06/03/16 06/04/16 06/04/16 13:51 04:24 04:24 WBC 7.8 Hgb 10.0 L Hct 34.2 L Plt Count 159 APTT 32.0 Sodium 143 Potassium 3.9 Chloride 99 Carbon Dioxide 36 H BUN 27 H Creatinine 0.74 Glucose 120 H Calcium 9.1 Consult Discharge Plan - Plan Instructions: Digoxin (By mouth), Amiodarone (By mouth), Carvedilol (By mouth) , Rivaroxaban (By mouth), Atrial Flutter (DC), Chronic Obstructive Pulmonary Disease (DC) Referrals: Korey Grullon MD [Primary Care Provider] - 06/09/16 2:30 pm Prescriptions: Amiodarone [Cordarone] 400 mg PO DAILY #60 tablet Carvedilol [Coreg] 3.125 mg PO BIDWM #30 tablet Digoxin [Lanoxin] 0.125 mg PO DAILY #30 tablet Rivaroxaban [Xarelto] 20 mg PO DAILY #30 tablet
[2016-06-04] MEDS: Budesonide/Formoterol 160/4.5 MDI IH SCH (11:00)
[2016-06-04] MEDS: Levalbuterol Neb 0.63 MG/3 ML IH SCH (11:01)
[2016-06-04 11:34] VITALS: BP 90/55
--- NOTE | 2016-06-04 13:04 | Discharge Summary ---
Date of Encounter: 06/04/16 Time of Encounter: 11:00 - Discharge Diagnosis (1) Dyspnea Priority: Primary Status: Acute Qualifiers: Dyspnea type: dyspnea on exertion Qualified Code(s): R06.09 - Other forms of dyspnea (2) Ascites Priority: Primary Status: Chronic Qualifiers: Ascites type: malignant Qualified Code(s): R18.0 - Malignant ascites (3) Atrial flutter Priority: Primary Status: Acute Qualifiers: Atrial flutter type: unspecified Qualified Code(s): I48.92 - Unspecified atrial flutter (4) Lung cancer Priority: Secondary Status: Acute Qualifiers: Laterality: unspecified laterality Lung location: unspecified part of lung Qualified Code(s): C34.90 - Malignant neoplasm of unspecified part of unspecified bronchus or lung (5) DVT prophylaxis Priority: Secondary Status: Acute (6) COPD (chronic obstructive pulmonary disease) Priority: Secondary Status: Chronic Qualifiers: COPD type: unspecified COPD Qualified Code(s): J44.9 - Chronic obstructive pulmonary disease, unspecified (7) CHF (congestive heart failure) Priority: Secondary Status: Acute Qualifiers: Congestive heart failure type: systolic Congestive heart failure chronicity : acute on chronic Qualified Code(s): I50.23 - Acute on chronic systolic ( congestive) heart failure (8) Liver metastases Priority: Secondary Status: Chronic - Discharge Medications Prescriptions: Amiodarone [Cordarone] 400 mg PO DAILY #60 tablet Carvedilol [Coreg] 3.125 mg PO BIDWM #30 tablet Digoxin [Lanoxin] 0.125 mg PO DAILY #30 tablet Rivaroxaban [Xarelto] 20 mg PO DAILY #30 tablet Home Medications: Aspirin Enteric Coated [Aspirin EC] 81 mg PO DAILY 07/18/15 [History] Furosemide [Lasix] 40 mg PO DAILY PRN 07/18/15 [History] Multivit-Min/FA/Lycopen/Lutein [Centrum Silver Tablet] 1 each PO DAILY 07/18/15 [History] Albuterol Sulfate [Proair Respiclick] 2 puff IH Q6H PRN 05/22/16 [History] Budesonide/Formoterol 160/4.5 [Symbicort 160/4.5] 2 puff IH BIDR 05/22/16 [ History] Cyanocobalamin (B-12) [Vitamin B12] 1,000 mcg PO DAILY 05/22/16 [History] Docusate [Colace] 100 mg PO BID 05/22/16 [History] LORazepam [Ativan] 0.5 mg PO QID PRN 05/22/16 [History] Loperamide [Imodium] 2 mg PO AD PRN 05/22/16 [History] Magic Mouthwash [Magic Mouthwash BLM] 10 ml PO TID PRN 05/22/16 [History] Ondansetron [Zofran] 8 mg PO Q8HR PRN 05/22/16 [History] Prochlorperazine Maleate [Compazine] 10 mg PO Q6HR PRN 05/22/16 [History] Sertraline [Zoloft] 100 mg PO HS 05/22/16 [History] Zolpidem [Ambien] 5 mg PO HS PRN 05/22/16 [History] HYDROcodone/Acet 7.5/325 mg [Chloe 7.5-325 mg] 1 tab PO Q8H PRN 05/29/16 [ History] Isosorbide MONOnitrate (24 HR) [Imdur] 60 mg PO DAILY 05/29/16 [History] Omeprazole [PriLOSEC] 20 mg PO DAILY 05/29/16 [History] Amiodarone [Cordarone] 400 mg PO DAILY #60 tablet 06/04/16 [Rx] Carvedilol [Coreg] 3.125 mg PO BIDWM #30 tablet 06/04/16 [Rx] Digoxin [Lanoxin] 0.125 mg PO DAILY #30 tablet 06/04/16 [Rx] Rivaroxaban [Xarelto] 20 mg PO DAILY #30 tablet 06/04/16 [Rx] Allergies/Adverse Reactions: Allergies No Known Allergies Allergy (Verified 05/29/16 15:48) Procedures/tests Complete & Pending: Procedures Performed prior 72 hours Category Date Time Status IR paracentesis ultrasound [IR] Routine IR 06/03/16 Completed - Notes to Outpatient Provider 1. Patient was found A Flutter, on amiodarone, digoxin, and carvedilol for rate control, and xarelto for anticoagulation Date of admission: 05/29/16 22:38 Primary care physician: Jan Lebron Consults: 05/29/16 23:24 Consult to Cardiology [CONS] Routine Comment: Consulting Provider: Sara Campuzano Reason for Consult: atrial flutter new onset Time Notified: 23:25 Call Completed: Yes Discharging clinician: Ben Myres Anticipated date of discharge: 06/04/16 - Patient Status Disposition: Home, Self-Care Condition: Fair Functional capacity at discharge: independent ambulation Overall status at discharge: patient is back to baseline - Discharge Instructions Follow Up With: Korey Grullon MD [Primary Care Provider] - 06/09/16 2:30 pm - Diet and Activity Activity: increase activity as tolerated, wear oxygen at all times Diet: diabetic diet Interval History: Mr. 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 Patient has chronic shortness of breath related to COPD and lung cancer however in the past couple days he has had increased rash of breath on exertion. He states that last his oncologist did place him on steroids due to shortness of breath which she states she completed on Thursday. He is also been experiencing edema to lower extremities as well as abdomen he has had a 7 pound weight gain. He does take Lasix as needed as dictated 2 days ago and did note a decrease in swelling He denies any chest pain cough fever chills nausea vomiting or diarrhea. 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 Upon presentation to ER patient was experiencing respiratory distress with wheezing EKG did reveal atrial flutter with rapid ventricular response rate of 1:30 SPO2 was 94% on room. He was given breathing treatments as well as steroids is placed on Cardizem drip. His present heart rate continues to be 120s to 130s however he feels his symptoms has improved. Here physician to speak to cardiology who recommended initiating amiodarone. Patient was admitted for further workup and evaluation. Presently patient does not appear to be in respiratory distress he denies any chest pain he is atrial flutter 120s in the monitor. He has scattered rhonchi throughout lung flores heart sounds are irregular S1 and S2 with no rubs gallops clicks or murmurs noted. He has +2 pitting edema to lower strength bilaterally. His abdomen is distended and firm nontender. Hospital course: Mr. Flaherty is a 76 year old male admitted for A flutter with a rapid ventricular response. Patient was put on Cardizem drip, digoxin. Cardiology consult was called, patient was switched to carvedilol, digoxin and amiodarone by mouth. His heart rate is well controlled. Xarelto started for anticoagulation. His shortness of breath has improved after treatment. Patient was seen and examined. He is awake alert, oriented 3. In no acute respiratory distress. Vital signs stable. Oxygen saturation 94-97% on 2 L nasal cannula oxygen. Patient has history of COPD and has home oxygen already. Will discharge patient home and the follow-up with PCP and bundle wrapper as outpatient. Patient was found systolic CHF with LVEF 30-35%. Cardiology saw patient. Patient was placed on beta imelda at a low dose. No INDERJIT inhibitor or ARB because of low blood pressure. - Time Spent with Patient Total time spent providing and/or coordinating discharge services: 40 minutes Greater than 30 minutes - Constitutional Vitals: Temp Pulse Resp BP Pulse Ox 97.7 F 80 16 90/55 94 06/04/16 11:24 06/04/16 12:13 06/04/16 11:24 06/04/16 11:24 06/04/16 11:24 General appearance: Present: A&O X 3, answers questions appropriately - Head Head exam: Present: atraumatic, normocephalic - Eye Eye exam: Present: PERRL, conjuntiva pink, sclera anicteric Pupils: Present: PERRL - Neck Neck exam general surgery: Present: supple, trachea midline. Absent: lymphadenopathy - Respiratory Respiratory exam: Present: CTAB. Absent: accessory muscle use, rales, rhonchi, wheezes - Cardiovascular Cardiovascular exam: Present: RRR, +S1, +S2. Absent: diastolic murmur, gallop, rubs, systolic murmur - GI/Abdominal GI/Abdominal exam: Present: normal bowel sounds, soft, no peritoneal signs. Absent: distended, tenderness - Extremities Exam Extremities exam: Present: pedal edema (Mild pedal edema bilaterally), warm, radial pulses palpable and symetrical. Absent: calf tenderness, cyanotic - Neurological Exam Neurological exam: Present: CN II-XII intact, oriented X3, no focal deficits. Absent: pronater drift, facial droop, speech deficit - Skin Skin exam: Present: dry, intact
== END 2016-06-04 14:08 | disposition home or self-care (01) | DRG 308 ==
LOC: 2NNU 16:44 → EMEROO 16:44 → 2NNU 22:10 → SUATTDRO 22:38
PROVIDERS: ADMIT Internal Medicine; ATTEND Internal Medicine